=== PATIENT | male | born 1965 | race Caucasian/White ===

== ENCOUNTER 2024-07-28 11:08 | Day surgery (SDC) | payer OTHER ==
[2024-07-28] VITALS (16 sets, daily range): BP systolic 110–136; BP diastolic 78–102
[~2024-07-28] VITALS: Ht 170.2 cm; Wt 83.3 kg
[~2024-07-28 11:08] MED LIST: Acetaminophen 500 MG Tab PO SCH; CeFAZolin Sodium 2,000 MG in NS 100 ML IV SCH; Chlorhexidine Mouth Care 15 ML UDC MT SCH; Lactated Ringer's 1,000 ML IV SCH; OxyCODONE HCL 10 MG TABCR PO SCH; Ropivacaine 0.5% HCl/Pf 123.125 MG,EPINEPHrine HCL 0.25 MG,Ketorolac Tromethamine 15 MG... INFIL SCH; TERB250 PO; Tranexamic Acid 1,000 MG in NS 100 ML IV SCH
[2024-07-28] MEDS ORDERED: CeFAZolin Sodium 2,000 MG VIAL ONE (11:37)
[2024-07-28] MEDS ORDERED: FLU VACC TS2024-25(6MOS UP)/PF 45 MCG/0.5 ML SYRINGE IM SCH (12:00)
[2024-07-28] MEDS ORDERED: Metoclopramide HCl 5MG / ML 2ML Vial IV PRN (12:05)
[2024-07-28] MEDS ORDERED: Lactated Ringer's 1,000 ML IV SCH (12:05)
[2024-07-28] MEDS ORDERED: Magnesium Hydroxide Conc 10 ML UDC PO PRN (12:05)
[2024-07-28] MEDS ORDERED: Bisacodyl 10 MG Supp PR PRN (12:05)
[2024-07-28] MEDS ORDERED: Ondansetron HCl 2 MG / ML 2ML Vial IV PRN ×2 (12:05→14:40)
[2024-07-28] MEDS ORDERED: DiphenhydrAMINE HCL 25 MG Cap PO PRN (12:05)
[2024-07-28] MEDS ORDERED: Promethazine HCl 25 MG Tab PO PRN (12:10)
[2024-07-28] MEDS ORDERED: HYDROmorphone HCl/Pf 1MG SYR IV PRN ×2 (12:10→14:40)
[2024-07-28] MEDS ORDERED: OxyCODONE HCL 5 MG TAB PO PRN ×2 (12:10)
[2024-07-28] MEDS ORDERED: Ipratropium/Albuterol SulF 2.5-0.5MG/3 ML Amp ONE (12:18)
[2024-07-28] MEDS ORDERED: Midazolam HCl 1MG / ML 2ML Vial ONE ×2 (12:18→12:28)
[2024-07-28] MEDS ORDERED: Glycopyrrolate 0.2 MG/ML 5ML VIAL ONE (12:58)
[2024-07-28] MEDS ORDERED: ePHEDrine Sulfate 50 MG/ML 1ML Injection ONE (13:02)
[2024-07-28] MEDS ORDERED: propofoL 40 ML IV ONE (14:01)
[2024-07-28] MEDS ORDERED: ePHEDrine Sulfate 50 MG/ML 1ML Injection IV PRN (14:40)
[2024-07-28] MEDS ORDERED: FentaNYL Citrate 50 MCG/ML 2 ML Injection IV PRN ×2 (14:40)
[2024-07-28] MEDS ORDERED: Atropine Sulfate 0.1 MG/ML 10ML SYR IV PRN (14:45)
[2024-07-28] MEDS ORDERED: Ipratropium/Albuterol SulF 2.5-0.5MG/3 ML Amp INH ONE (14:50)
[2024-07-28] MEDS ORDERED: Midazolam HCl 1MG / ML 2ML Vial IV ONE (14:50)
[2024-07-28] MEDS ORDERED: Labetalol HCL 5 MG/ML 4ML Injection (Single Dose) IV PRN (14:55)
[2024-07-28] MEDS ORDERED: Morphine Sulfate 4 MG/1 ML Injection IV PRN (14:55)
[2024-07-28] MEDS ORDERED: FentaNYL Citrate 50 MCG/ML 2 ML Injection ONE (15:26)
[2024-07-28] MEDS ORDERED: Dexamethasone Sod Phos 10 MG/ML 1ML VIAL ONE (15:51)
[2024-07-28] MEDS ORDERED: Ondansetron HCl 2 MG / ML 2ML Vial ONE (15:51)
[2024-07-28] MEDS ORDERED: Acetaminophen 500 MG Tab PO SCH (16:00)
[2024-07-28] MEDS ORDERED: Ketorolac Tromethamine 15mg Vial IV SCH (18:00)
--- NOTE | 2024-07-28 19:05 | NUR ---
SHIFT SUMMARY PT HAD R TKA TODAY. ARRIVED TO SURGICAL UNIT AROUND 1615, AFTER SPINAL WORE OFF WAS ABLE TO AMBULATE TO BATHROOM BUT UNABLE TO VOID. PLANS TO ATTEMPT AGAIN AFTER DINNER. SURG SITE WNL. EATING & DRINKING. PAIN TOLERABLE.
[2024-07-28] MEDS ORDERED: CeFAZolin Sodium 2,000 MG in NS 100 ML IV SCH (20:30)
[2024-07-28] MEDS ORDERED: Docusate Sodium 100 MG Cap PO SCH (21:00)
[2024-07-29 02:49] VITALS: BP 142/88
--- NOTE | 2024-07-29 04:43 | NUR ---
SHIFT SUMMARY POD 1 S/P RIGHT TKA. DRESSING/EMIGDIO WRAP CDI. CYRO THERAPY TO RIGHT KNEE T/O SHIFT. AMBULATING IN ROOM AND HALLWAY WITH FWW, GB, SBA. PAIN MANAGED PER EMAR. DIXON SMALL AMOUNT OF PO INTAKE. MEDICATED X 1 FOR NAUSEA. IS VOIDING. ABX INFUSED PER ORDERS. PLAN TO WORK WITH THERAPY TODAY AND D/C HOME. WILL GIVE REPORT TO ONCOMING RN.
[2024-07-29 05:31] LABS: BASOPHILS ABSOLUTE AUTO 0.02 K/mm3 (0.00-0.23); BASOPHILS PERCENT AUTO 0 % (0-2); EOSINOPHILS ABSOLUTE AUTO 0.01 K/mm3 (0.00-0.68); EOSINOPHILS PERCENT AUTO 0 % (0-6); Hematocrit 37.3 % (37.0-53.0); Hemoglobin 13.4 g/dL (13.5-17.5); IMMATURE GRAN ABSOLUTE AUTO 0.06 K/mm3 (0.00-0.10); IMMATURE GRAN PERCENT AUTO 0 % (0-1); LYMPHOCYTES ABSOLUTE AUTO 1.14 K/mm3 (0.84-5.20); LYMPHOCYTES PERCENT AUTO 8 % (21-46); MONOCYTES ABSOLUTE AUTO 1.14 K/mm3 (0.16-1.47); MONOCYTES PERCENT AUTO 8 % (4-13); Mean Corpuscular HGB Conc 35.9 g/dL (31.5-36.5); Mean Corpuscular Volume 78 fL (80-100); Mean Platelet Volume 11.4 fL (9.1-12.4); NEUTROPHILS ABSOLUTE AUTO 12.88 K/mm3 (1.96-9.15); NEUTROPHILS PERCENT AUTO 84 % (41-73); Platelet Count 175 K/mm3 (150-400); RDW Coefficient Variation 13.1 % (11.7-14.2); Red Blood Cell Count 4.78 M/mm3 (4.30-5.90); White Blood Cell Count 15.25 K/mm3 (4.00-11.30)
[2024-07-29 05:54] LABS: Bun/Creatinine Ratio 14.7 (12.0-20.0); Calcium, Blood 8.9 mg/dL (8.5-10.1); Creatinine, Blood 0.68 mg/dL (0.60-1.20); Potassium, Blood 4.1 mmol/L (3.5-5.5)
[2024-07-29 06:43] VITALS: BP 129/79
[2024-07-29 06:44] VITALS: BP 122/85
[2024-07-29 06:45] VITALS: BP 112/83
[2024-07-29] MEDS ORDERED: Terbinafine 250 MG Tab PO SCH (09:00)
[2024-07-29] MEDS ORDERED: Aspirin 81 MG Chew PO SCH (09:00)
[2024-07-29] MEDS ORDERED: ONDA4ODT SL (10:43)
[2024-07-29 11:57] VITALS: BP 148/85
--- NOTE | 2024-07-29 12:25 | NUR ---
DISCHARGE NOTE PT IS POD1 FOR R TKA. DRESSING C/D/I, CAP REFILL IN R TOES 2 SECS, PT ABLE TO WIGGLE TOES. PT IS VOIDING, TOLERATING SOME PO INTAKE, PO FLUIDS. PT GETS INTERMITTENTLY NAUSEOUS W/ PAIN MEDS, MEDICATED FOR NAUSEA NEEDED. VERBAL ORDER RECIEVED FOR ZOFRAN FOR HOME USE FROM DR. MARTIN, CALLED PRESCRIPTION INTO [facility]. VSS. DISCHARGE INSTRUCTIONS REVIEWED W/ PT, COPY AND DRESSING CHANGES GIVEN. PAIN TOLERABLE, PT MEDICATED FOR PAIN BEFORE DISCHARGE. PT HAS PAIN MEDS FILLED AT HOME. PT DC'D IN STABLE CONDITION VIA WC TO PRIVATE RIDE HOME W/ ALL BELONGINGS.
== END 2024-07-29 12:28 | disposition home or self-care (01) ==
LOC: ORSCMMR 11:08 → ORD 14:00 → SURS 16:38 → ORSCMMR 07-29 12:28
PROVIDERS: Orthopaedic Surgery
PROC: 0SRC0JA Replacement of Right Knee Joint with Synthetic Substitute, Uncemented, Open Approach (ICD-10-PCS; principal; 2024-07-28 14:00)
DX: M17.11 Unilateral primary osteoarthritis, right knee (principal)
CPT/HCPCS: 36415; 73560-RT; 80048; 83735; 85025; 97110; 97116; 97162; 97530; A9270; C1713; C1776; J0171; J0690; J0735; J1100; J1885; J2250; J2405; J2704; J2795; J3010; J7120